=== PATIENT | male | born 2000 | race Caucasian/White ===

== ENCOUNTER → 2020-08-21 14:05 | Outpatient (BNVA) | payer OTHER, SELFPAY | PROVIDERS: Visit Provider Podiatrist Foot & Ankle Surgery | DX: M79.673 Pain in unspecified foot (principal) | CPT/HCPCS: 73630 ==

== ENCOUNTER → 2025-02-28 15:37 | Outpatient (BNVA) | payer OTHER, SELFPAY | PROVIDERS: Visit Provider Registered Nurse Neonatal Intensive Care | DX: S99.822A Other specified injuries of left foot, initial encounter (principal); S99.812A Other specified injuries of left ankle, initial encounter; W19.XXXA Unspecified fall, initial encounter | CPT/HCPCS: 73610; 73630 ==

== ENCOUNTER 2025-03-18 06:30 | Outpatient (RCR) | payer OTHER, SELFPAY | END 2025-04-16 23:59 | disposition home or self-care (01) | LOC: SPT 06:30 | PROVIDERS: Visit Provider Orthopaedic Surgery | DX: M25.572 Pain in left ankle and joints of left foot (principal) | CPT/HCPCS: 97110; 97161; L1902 ==

== ENCOUNTER 2025-04-17 05:00 | Outpatient (RCR) | payer OTHER, SELFPAY | END 2025-05-04 13:42 | disposition home or self-care (01) | LOC: SPT 05:00 | PROVIDERS: Visit Provider Orthopaedic Surgery | DX: M25.572 Pain in left ankle and joints of left foot (principal) | CPT/HCPCS: 97110; 97112 ==